=== PATIENT | female | born 1995 ===

== ENCOUNTER 2021-05-17 15:52 | Emergency (ER) | payer SELFPAY ==
[~2021-05-17] VITALS: Ht 167.6 cm; Wt 56.7 kg
[2021-05-17 16:00] VITALS: BP 126/86
[2021-05-17] MEDS ORDERED: IBUPROFEN 600 MG TAB PO ONE (17:30)
== END 2021-05-17 17:47 | disposition home or self-care (01) ==
LOC: ER 15:52
DX: S00.03XA Contusion of scalp, initial encounter (principal); S00.83XA Contusion of other part of head, initial encounter; W22.8XXA Striking against or struck by other objects, initial encounter; Y93.89 Activity, other specified; Y92.219 Unspecified school as the place of occurrence of the external cause; Y99.8 Other external cause status
CPT/HCPCS: 70450